=== PATIENT | male | born 1950 | race Caucasian/White ===

== ENCOUNTER → 2018-07-11 | Outpatient (CLI) | payer MEDICARE ==
[~2018-07-11] MED LIST: CEPH500C PO; ONDA8TAB13 PO; TRAM50TA2 PO
--- NOTE | 2018-07-11 11:00 | Diagnostic Imaging Report ---
PROCEDURE: CT right lower extremity without contrast. TECHNIQUE: Axially acquired CT was obtained through the right lower extremity without intravenous contrast. Coronal and sagittal reformations were also performed. INDICATION: Right knee pain. COMPARISON: None available. FINDINGS: Severe tricompartmental knee osteoarthritis is present. This is predominantly characterized by nonuniform joint space narrowing and large subcortical cyst formation. Marginal osteophytes are present as well. Small knee joint effusion is seen. Chondrocalcinosis of the menisci is likely degenerative in nature as well. Severe degenerative changes are also present at the proximal tibiofibular joint. No fracture is seen. No large mineralized intra-articular bodies are appreciated. IMPRESSION: 1. Severe tricompartmental knee osteoarthritis. 2. Advanced degenerative changes of the proximal tibiofibular joint. Dictated by: Dictated on workstation # [id number]
== END ==
LOC: RAD 09:05
PROVIDERS: ATTEND Orthopaedic Surgery
DX: Z01.818 Encounter for other preprocedural examination (principal); M17.11 Unilateral primary osteoarthritis, right knee
CPT/HCPCS: 73700

== ENCOUNTER → 2018-07-17 | Outpatient (CLI) | payer MEDICARE ==
--- NOTE | 2018-07-17 15:50 | Diagnostic Imaging Report ---
PROCEDURE: CT right lower extremity without contrast. TECHNIQUE: Helical acquired CT was obtained through the right lower extremity without intravenous contrast. INDICATION: Right knee pain. Operative planning CT. FINDINGS: Multiple noncontiguous axial oriented CT images of the right lower extremity were obtained for planning purposes. This demonstrate severe tricompartmental degenerative changes in the knee. No concerning osseous or soft tissue abnormality within the other visualized structures. IMPRESSION: Severe tricompartmental knee osteoarthritis. Dictated by: Dictated on workstation # [id number]
== END ==
LOC: RAD 15:08
PROVIDERS: ATTEND Orthopaedic Surgery
DX: Z01.818 Encounter for other preprocedural examination (principal); M17.11 Unilateral primary osteoarthritis, right knee
CPT/HCPCS: 73700

== ENCOUNTER 2018-07-23 12:00 | Outpatient (CLI) | payer MEDICARE ==
[~2018-07-23] VITALS: Ht 170.2 cm; Wt 98.1 kg
[2018-07-23] MEDS ORDERED: LISI10TA2 PO (12:14)
[2018-07-23 12:19] VITALS: BP 131/76
[2018-07-23 12:45] LABS: BASOPHILS % (AUTO) 1 % (0-10); EOSINOPHILS # (AUTO) 0.2 10^3/uL (0.0-0.3); EOSINOPHILS % (AUTO) 3 % (0-10); HEMATOCRIT 46 % (40-54); HEMOGLOBIN 15.4 G/DL (13.3-17.7); LYMPHOCYTES # (AUTO) 1.6 X 10^3 (1.0-4.0); LYMPHOCYTES % (AUTO) 24 % (12-44); MEAN CORPUSCULAR HEMOGLOBIN 31 PG (25-34); MEAN CORPUSCULAR HGB CONC 34 G/DL (32-36); MEAN CORPUSCULAR VOLUME 91 FL (80-99); MEAN PLATELET VOLUME 9.8 FL (7.4-10.4); MONOCYTES # (AUTO) 0.6 X 10^3 (0.0-1.0); MONOCYTES % (AUTO) 9 % (0-12); NEUTROPHILS # (AUTO) 4.2 X 10^3 (1.8-7.8); NEUTROPHILS % (AUTO) 65 % (42-75); PLATELET COUNT 242 10^3/uL (130-400); RED CELL DISTRIBUTION WIDTH 13.6 % (10.0-14.5); WHITE BLOOD COUNT 6.5 10^3/uL (4.3-11.0)
[2018-07-23 12:45] LABS: BILIRUBIN,URINE NEGATIVE (NEGATIVE); CLARITY,URINE CLEAR; COLOR,URINE YELLOW; GLUCOSE, URINE (UA) NEGATIVE (NEGATIVE); KETONES,URINE NEGATIVE (NEGATIVE); LEUKOCYTE ESTERASE ,URINE NEGATIVE (NEGATIVE); NITRITE,URINE NEGATIVE (NEGATIVE); PH,URINE 5 (5-9); PROTEIN,URINE NEGATIVE (NEGATIVE); UROBILINOGEN,URINE NORMAL (NORMAL)
[2018-07-23 12:55] LABS: INR 0.9 (0.8-1.4); PROTHROMBIN TIME PATIENT 12.6 SEC (12.2-14.7)
[2018-07-23 13:06] LABS: BILIRUBIN,TOTAL 0.4 MG/DL (0.1-1.0); CREATININE SERUM 1.36 MG/DL (0.60-1.30); POTASSIUM 4.2 MMOL/L (3.6-5.0); TOTAL PROTEIN 6.8 GM/DL (6.4-8.2)
--- NOTE | 2018-07-23 13:06 | Diagnostic Imaging Report ---
Indication: Preop knee arthroplasty PA and lateral chest Heart size and pulmonary vascular normal. Lungs are clear. There are no effusions or pneumothoraces. Impression: Negative chest Dictated by: Dictated on workstation # [id number]
[2018-07-23 13:09] LABS: BACTERIA,URINE NEGATIVE /HPF; RBC,URINE 25-50 /HPF
[2018-07-23] MEDS ORDERED: DOXY25TA56 PO (13:27)
== END 2018-07-23 15:41 | disposition home or self-care (01) ==
LOC: PREOP 12:00
PROVIDERS: ATTEND Orthopaedic Surgery
DX: Z01.810 Encounter for preprocedural cardiovascular examination (principal); Z01.811 Encounter for preprocedural respiratory examination; Z01.812 Encounter for preprocedural laboratory examination; Z11.2 Encounter for screening for other bacterial diseases; M17.11 Unilateral primary osteoarthritis, right knee; R53.83 Other fatigue
CPT/HCPCS: 36415; 71046; 80053; 81000; 85025; 85610; 86850; 86900; 86901; 87081; 93005

== ENCOUNTER 2018-07-30 07:36 | Inpatient (IN) | payer MEDICARE ==
--- NOTE | 2018-07-21 11:42 | HISTORY AND PHYSICAL ---
DATE OF SERVICE: 07/30/2018 DATE OF ADMISSION: 07/30/2018. This will be for inpatient admission service for right total knee arthroplasty. The patient will require regular inpatient admission due to comorbidities, pain management, physical therapy and gait abnormalities. HISTORY OF PRESENT ILLNESS: The patient is a 68-year-old gentleman with progressively worsening right knee pain. He reports that he has not responded with any prolonged relief from conservative measures including the anti-inflammatories, injections and activity modifications. He reports activity limitations because of the knee. Due to functional impairment and failure to improve with conservative measures, the patient elected to proceed with surgical intervention. Radiographs revealed severe medial and patellofemoral arthrosis with complete loss of medial joint space. REVIEW OF SYSTEMS: No chest pain, no shortness of breath. No dysuria. PAST MEDICAL HISTORY: Hypertension, urinary calculi. PAST SURGICAL HISTORY: Left ACL reconstruction, renal stone extraction, uvula extraction. FAMILY HISTORY: Significant for Parkinson's, diabetes. PRIMARY CARE PROVIDER: Dr. Mason. MEDICATIONS: Lisinopril and Naprosyn. ALLERGIES: CODEINE. SOCIAL HISTORY: The patient is a former smoker, drinks alcohol socially. PHYSICAL EXAMINATION: GENERAL: The patient is well developed, well-nourished, in no acute distress. HEENT: Normocephalic, atraumatic. Pupils are equal, round, reactive to light. Oropharynx is clear. NECK: Supple, no lymphadenopathy. LUNGS: Clear to auscultation bilaterally. HEART: Regular rate and rhythm. ABDOMEN: Soft, nontender, nondistended. EXTREMITIES: The right knee demonstrates varus alignment. Range of motion 0/3/100. He has negative anterior and posterior drawer. He has osteophyte formation noted medially to palpation with patellofemoral crepitus. Slight effusion noted. IMPRESSION: Severe right knee osteoarthritis. PLAN: Right total knee arthroplasty. The risks, benefits, options, ramifications and recovery were discussed at length with the patient. He understands and wishes to proceed. Job ID: [id number] DocumentID: [id number] Dictated Date: 07/21/2018 11:17:33 Dining Room Tables Set Up Attendant Date: 07/21/2018 11:42:12 Dictated By: TIMUR ANTHONY MD
--- NOTE | 2018-07-24 13:30 | NUR ---
MEDICATIONS WERE ENTERED BY PREOP NURSE. I CALLED [facility] AND VERIFIED THEY FILLED LISINOPRIL 10MG DAILY #90 07-17-18.
[~2018-07-30] VITALS: Ht 170.2 cm; Wt 98.1 kg
[~2018-07-30 07:36] MED LIST changes: +DOXY25TA56 PO; +LISI10TA2 PO
[2018-07-30 07:38] VITALS: BP 133/72
[2018-07-30] MEDS ORDERED: morphine PCA 100 MG/100 ML BAG IV PRN (07:45)
[2018-07-30] MEDS ORDERED: oxyCODONE/APAP 5/325MG (PERCOCET 5) TABLET PO PRN (07:45)
[2018-07-30] MEDS ORDERED: diphenhydrAMINE 50 MG/ML INJ (BENADRYL) IVP PRN (07:45)
[2018-07-30] MEDS ORDERED: ACETAMINOPHEN 325 MG TABLET PO PRN (07:45)
[2018-07-30] MEDS: LACTATED RINGERS 1,000 ML IV PRN ×2 (07:50→10:55)
[2018-07-30] MEDS ORDERED: CEFUROXIME INJECTION 1,500 MG in WATER (STERILE) FOR INJECTION 15 ML IV ONE (08:00)
[2018-07-30] MEDS ORDERED: INTRA-ARTICULAR IU ONE ×4 (08:00)
[2018-07-30] MEDS ORDERED: SEVOFLURANE (ULTANE) 15 ML INHAL SOLN ONE ×7 (08:24→10:55)
[2018-07-30] MEDS ORDERED: LIDOCAINE PF 2% 5 ML (XYLOCAINE) VIAL ONE (08:24)
[2018-07-30] MEDS ORDERED: proPOfol 200 MG/20 ML (DIPRIVAN) VIAL IV ONE (08:24)
[2018-07-30] MEDS ORDERED: fentaNYL INJECTION 100 MCG/2 ML AMP ONE ×2 (08:26→11:03)
[2018-07-30] MEDS ORDERED: MIDAZOLAM 2 MG/2 ML (VERSED) VIAL ONE (08:26)
[2018-07-30] MEDS ORDERED: NAPR-1033 PO (08:45)
[2018-07-30] MEDS ORDERED: RANI75TA21 PO (08:45)
[2018-07-30] MEDS ORDERED: BUPIVACAINE 0.25% 30 ML (SENSORCAINE) VIAL ONE (08:50)
[2018-07-30] MEDS ORDERED: ROCURONIUM 10 MG/ML 5 ML SYRINGE IV ONE (09:29)
[2018-07-30] MEDS ORDERED: DEXAMETHASONE 10 MG/ML (DECADRON) 1 ML VIAL ONE (09:29)
[2018-07-30] MEDS ORDERED: ONDANSETRON 4 MG/2 ML (SDV) Z0FRAN ONE (09:29)
--- NOTE | 2018-07-30 09:30 | Progress Note-Pre Operative ---
Pre-Operative Progress Note H&P Reviewed The H&P was reviewed, patient examined and no changes noted. Date Seen by Provider: Jul 30, 2018 Time Seen by Provider: :29 Date H&P Reviewed: Jul 30, 2018 Time H&P Reviewed: 09:29 Pre-Operative Diagnosis: right knee primary osteoarthritis TIMUR ANTHONY MD Jul 30, 2018 09:30
--- NOTE | 2018-07-30 09:31 | Progress Note-Post Operative ---
Post-Operative Progess Note Surgeon (s)/Gag Writer (s) Surgeon TIMUR ANTHONY MD Gag Writer: Jayson Alvarenga Pre-Operative Diagnosis right knee primary osteoarthritis Post-Operative Diagnosis right knee primary osteoarthrits Procedure & Operative Findings Date of Procedure 07/30/18 Procedure Performed/Findings right total knee arthroplasty Anesthesia Type GETA Estimated Blood Loss Estimated blood loss (mL): minimal Specimens/Packing Specimens Removed none Packing: none TIMUR ANTHONY MD Jul 30, 2018 09:31
[2018-07-30] MEDS ORDERED: OXYC1TAB87 PO (09:33)
--- NOTE | 2018-07-30 09:36 | D/C HH Face to Face Order ---
D/C Face to Face Orders Instructions for Patient [facility], Patient Instructions/FollowUp: three weeks Physician to follow Patient: three weeks Discharge Diet for Home: Regular Diet Patient Data-Allergies,Ht & Wt Patient Allergies: Coded Allergies: acetaminophen (Verified Allergy, Mild, ITCHING, 07/23/18) codeine (Verified Allergy, Mild, HIVES, 07/23/18) Height (Feet): 5 Height (Inches): 7.00 Weight (Pounds): 216 Weight (Ounces): 5.0 Home Health Need/Face to Face Date of Face to Face: Jul 30, 2018 Clinical Findings: Instability, Muscle weakness, Pain with ambulation, Unsteady gait I have seen Pt [id number]: Yes Discharged To: Home Diagnosis/Conditions: right total knee arthroplasty Patient is Homebound due to: Wai fall risk due to instabilty, Pain w/ ambulation Homebound Status Due to the above stated illness, injury or surgical procedure (medical condition or diagnosis) and associated clinical findings, the patient is homebound because of his/her inability to leave home except with aid of a supportive device and/or person AND leaving the home requires a considerable and taxing effort or is medically contraindicated. Pt req the following assistanc: [facility] Nursing Orders Home Health Services Order: Physical Therapy-Evaluate & Treat DC right knee huyen and apply steri strips 08/13/18 Home Health Infusion Therapy Line Start Date: Jul 30, 2018 Line Start Time: 0750 Line Type: Peripheral IV Site Location: Hand Therapy Orders Therapy Orders: Physical Therapy, PT to assess for OT Therapy Specific Orders: Eval assistive deivces, Gait training, Increase strength/endurance, Provider maintenance therapy, Restore ROM Certify Stmt I certify that this patient is under my care and that I, a nurse practitioner or a physician; a portfolio assistant working with me, had a face to face encounter that - meets the physician face to face encounter requirements with this patient as dated. TIMUR ANTHONY MD Jul 30, 2018 09:36
[2018-07-30] MEDS ORDERED: TRANEXAMIC ACID 100 MG/ML 10 ML INJECTION IV ONE (09:57)
[2018-07-30] MEDS ORDERED: NEOSTIGMINE 1 MG/ML 5 ML SYRINGE ONE (10:11)
[2018-07-30] MEDS ORDERED: GLYCOPYRROLATE 0.2 MG/ML (ROBINUL) 2 ML VIAL ONE (10:11)
[2018-07-30] MEDS ORDERED: ONDANSETRON 4 MG/2 ML (SDV) Z0FRAN IVP PRN (11:30)
[2018-07-30] MEDS ORDERED: MEPERIDINE (DEMEROL) INJ 50 MG/ML IVP ONE (11:30)
[2018-07-30] MEDS ORDERED: HYDROmorphone 2 MG/ML VIAL (DILAUDID) IV ONE (11:30)
[2018-07-30] MEDS ORDERED: PROMETHAZINE INJ 25 MG/ML (PHENERGAN) AMP IVP ONE (11:30)
[2018-07-30] MEDS ORDERED: morphine INJ 10 MG/ML 1ML (SYR OR VIAL) IVP ONE (11:30)
[2018-07-30] MEDS ORDERED: morphine INJ 10 MG/ML 1ML (SYR OR VIAL) ONE (11:39)
[2018-07-30 12:00] VITALS: BP 142/81
--- NOTE | 2018-07-30 12:10 | NUR ---
ANCELMO PIA admitted to room 418-1, with an admitting diagnosis of RIGHT TOTAL KNEE REPLACEMENT , on 07/30/18 from [facility] via [facility], accompanied by STAFF.ANCELMO PALACIO introduced to surroundings, call light, bed controls, phone, TV, temperature control, lights, meal times, smoking policy, visitor policy, side rail policy, bathrooms and showers. Patient Rights given to patient in the handbook.ANCELMO PALACIO verbalizes understanding that [facility] is not responsible for the loss or damage to any personal effects or valuables that are kept in the patients posession during their hospitalization. The following Patient Care Plans were discussed with the PT: Discharge Planning, PAIN CONTROL,IV THERAPY, and TESTYS AND PROCEDURES AND PROTOCALS. ANCELMO PALACIO verbalizes understanding of Interdisciplinary Patient Education. Patient and/or family were informed about the Rapid Response Team and its purpose.
[2018-07-30] MEDS ORDERED: morphine INJ 10 MG/ML 1ML (SYR OR VIAL) IVP STA (12:22)
[2018-07-30] MEDS ORDERED: morphine INJ 4 MG/ML 1 ML (VIAL/SYRINGE) ONE (12:28)
--- NOTE | 2018-07-30 13:07 | Progress Note-Standard ---
Standard Progress Note Progress Notes/Assess & Plan Date Seen by a Provider: Jul 30, 2018 Time Seen by a Provider: 13:05 Progress/Assessment & Plan post op check somnolent, but no complaints denies paresthesias radiographs--HW well positioned without fx RLE--2 plus DP pulse with brisk cap refill. Intact PF of toes and ankle, but weak with DF. Sensation intact to light touch throughout s/p RTKA . weakness likely secondary to periarticular block mobilize as able TIMUR ANTHONY MD Jul 30, 2018 13:07
[2018-07-30] MEDS: SENNA W/DOCUSATE (SENOKOT S) TABLET PO SCH ×2 (14:28→21:37)
[2018-07-30] MEDS: NS IV 1000 ML 1,000 ML IV SCH ×2 (14:28→17:17)
[2018-07-30] MEDS: ONDANSETRON 4 MG/2 ML (SDV) Z0FRAN IVP PRN ×2 (14:39→21:46)
--- NOTE | 2018-07-30 14:47 | Physical Therapy Evaluation ---
PT Evaluation-General Medical Diagnosis Admission Date Jul 30, 2018 at 07:36 Medical Diagnosis: right TKA Onset Date: Jul 30, 2018 Therapy Diagnosis Therapy Diagnosis: impaired mobility, strength, endurance, ROM Height/Weight Height (Feet): 5 Height (Inches): 7.00 Weight (Pounds): 216 Weight (Ounces): 5.0 Precautions Precautions/Isolations: Standard Precautions Weight Bear Status Right Lower Extremity: Right Weight Bearing/Tolerated Referral Physician: Jayson Alvarenga Reason for Referral: Evaluation/Treatment Medical History Additional Medical History PAST MEDICAL HISTORY: Hypertension, urinary calculi. PAST SURGICAL HISTORY: Left ACL reconstruction, renal stone extraction, uvula extraction Reviewed History: Yes Social History Home: Single Level Current Living Status: Spouse Entry Into Home: Stairs Without Railing PT Steps Into Home: 4 Prior/Core FIM Prior Level of Function Therapy Code Descriptions/Definitions Functional [place] Measure: 0=Not Assessed/NA 4=Minimal Assistance 1=Total Assistance 5=Supervision or Setup 2=Maximal Assistance 6=Modified [place] 3=Moderate Assistance 7=Complete [place] Therapy Quality Codes: 6 Independent with activity with or without an assistive device 5 Patient requires set up or clean up by helper. Patient completes activity by themselves 4 Supervision or touching assist (CGA). [place] provide cues , steadying assist 3 The helper provides less than half the effort to complete the activity 2 The helper provides more than half the effort to complete the activity 1 Dependent. The helper does all the effort to complete an activity 7 Patient refused to complete or attempt activity 9 The patient did not perform the activity before the current illness or injury 88 Not attempted due to Medical conditions or safety concerns Functional Abilities and Goals: Independent: Patient completed the activities by him/herself, with or without an assistive device, with no assistance from a helper. Needed Some Help: Patient needed partial assistance from another person to complete activities. Dependent: A helper completed the activities for the patient. Unknown: Not Applicable: Bed Mobility: 7 Transfers (B,C,W/C) (FIM): 7 Gait: 7 Stairs: 7 Indoor Mobility (Ambulation): Independent Stairs: Independent PT Evaluation-Current Subjective Patient in bed pre tx, agrees to PT, has no pain in right knee at rest. Patient is very drowsy, nauseated and does not have any active movement in right ankle yet. Pt/Family Goals to be independent at home Objective Patient Orientation: Person, Place, Situation Attachments: SCD's, Oxygen, Polar Pack, IV ROM/Strength ROM Lower Extremities right knee extension +5 degrees, flexion 60 degrees Strength Lower Extremities NT Neuromuscular (Tone, Coordination, Reflexes) NT Sensory Vision: Wears Glasses Hearing: Functional Sensation Right Lower Extremit: Intact Sensation Left Lower Extremity: Intact Transfers Therapy Code Descriptions/Definitions Functional [place] Measure: 0=Not Assessed/NA 4=Minimal Assistance 1=Total Assistance 5=Supervision or Setup 2=Maximal Assistance 6=Modified [place] 3=Moderate Assistance 7=Complete [place] Treatment Supine total knee protocol x10 (AP, QS, HS, SAQ, SLR). At the end of exercises patient became even more nauseated and started dry heaving into his basin. That , combined with his block still being pretty active it was decided that he will not ambulate at this time. CPM donned and adjusted to his leg and set to -2/ 50. Patient in bed post tx with nurse call, phone, tray, family in the room. Polar care and SCD's on. Assessment/Needs Patient has impaired mobility, strength, endurance, ROM post right TKA. Patient very nauseated, nurse notified. Rehab Potential: Fair PT Short Term Goals Short Term Goals Time Frame: Aug 06, 2018 Transfers (B,C,W/C) (FIM): 5 Gait (FIM): 2 Gait Distance Comment: 50' Gait Level of Assist: 5 Gait Assistive Device: FWW PT Plan Problem List Problem List: Activity Tolerance, Functional Strength, Safety, Balance, Gait, Transfer, Bed Mobility, ROM Treatment/Plan Treatment Plan: Continue Plan of Care Treatment Plan: Bed Mobility, Education, Functional Activity Nilsa, Functional Strength, Gait, Safety, Therapeutic Exercise, Transfers Treatment Duration: Aug 06, 2018 Frequency: 11 times per week Estimated Hrs Per Day: .25 hour per day (15-30') Patient and/or Family Agrees t: Yes Safety Risks/Education Patient Education: Reviewed Use of Ice, Correct Positioning, Disease Process, Safety Issues Teaching Recipient: Patient Teaching Methods: Demonstration, Discussion Response to Teaching: Reinforcement Needed Discharge Recommendations Plan Patient will perform bed mobility and transfer training, balance and endurance training, functional strengthening, stair training, gait training, and education , to improve functional mobility and independence at home. Therapy D/C Recommendations: Home w/ Family Support Time/GCodes Time In: 1425 Time Out: 1440 Total Billed Treatment Time: 15 Total Billed Treatment 1 visit EVL 15' RUDI KO PT Jul 30, 2018 14:47
--- NOTE | 2018-07-30 15:11 | Diagnostic Imaging Report ---
INDICATION: Right knee replacement. Time of exam 11:49 a.m. FINDINGS: Two views of the right knee demonstrate postoperative changes of total knee arthroplasty. Prosthetic elements are in good position. No fracture or loosening is seen. Overlying skin huyen are noted. IMPRESSION: Satisfactory postop right knee. Dictated by: Dictated on workstation # [id number]
--- NOTE | 2018-07-30 15:24 | OPERATIVE REPORT ---
DATE OF SERVICE: 07/30/2018 PREOPERATIVE DIAGNOSIS: Right knee primary osteoarthritis. POSTOPERATIVE DIAGNOSIS: Right knee primary osteoarthritis. PROCEDURE: Right total knee arthroplasty. SURGEON: Mc Byrd MD. MACHINE LACER: Jayson Alvarenga, who assisted throughout the procedure and closed the incision. He also aided with retraction and patient positioning. ANESTHESIA: General endotracheal by Jim Urias CRNA. TOURNIQUET TIME: Approximately 70 minutes at 300 mmHg. ESTIMATED BLOOD LOSS: Minimal. DRAINS: None. COMPLICATIONS: None. POSTOPERATIVE PLAN: Routine protocol, the patient was transferred to the recovery room awake and in stable condition. MATERIALS: MicroPort cemented size 6 femur, cemented size 6+ tibia with a 10 mm insert and cemented size 35 patellar button. STATEMENT OF MEDICAL NECESSITY: The patient is a 68-year-old gentleman with a longstanding progressive right knee pain. Radiographs revealed severe tricompartmental osteoarthritis. He has undergone treatment with injections, anti-inflammatories and rest without relief. Due to functional impairment and failure to improve with conservative measures, the patient elected to proceed with surgical intervention. DESCRIPTION OF PROCEDURE: After risks and benefits of the procedure were discussed and questions were answered and informed consent signed and placed on chart, the operative site was confirmed in the preoperative holding area initialed by the surgeon, the patient was then transferred to the operating room. After adequate levels of general endotracheal anesthetic were obtained, a timeout was called confirming the operative site. The right lower extremity was prepped and draped in the usual sterile fashion with the leg elevated and the knee flexed, tourniquet was insufflated to 300 mmHg. A standard anterior approach was utilized. Hemostasis was obtained with cautery. Medial parapatellar arthrotomy was performed leaving a 1 cm cuff on the patella for later reattachment. A portion of the fat pad was resected. The ACL was resected. The custom block was placed on the distal femur and felt to be in excellent position. This was pinned into position and the distal cutting block was placed. A distal cut was made and the 6 cutting block was placed parallel to the epicondylar axis and the previously placed drill holes. The cuts were then made from posterior to anterior. A subperiosteal release was then carefully performed over the posterior distal femur, being careful to stay on the bony surface. The custom block was placed on the tibia, but was felt to be malaligned. Therefore, a standard technique was utilized in which the intramedullary guide was passed into the canal. The cutting block was placed. The drop mar transected the intermalleolar axis. The cut was made. A 6+ baseplate was placed and found to be in excellent position. This was prepared with a drill and keel punch. The trochlear cut was made. The patella was prepared by using the freehand technique and resecting 10 mm off the undersurface. The peg guide was placed and the peg holes were drilled. The trials were inserted with a 10 mm insert. Full extension was easily obtained greater than 120 degrees of flexion with gravity was easily obtained. There was no anterior/posterior or medial/lateral laxity in flexion or extension . The patella tracked very well. The trials were removed. The joint was irrigated with pulse lavage. The bone ends were irrigated and dried. The periarticular block was placed in the posterior capsule, medial and lateral retinaculum extensor mechanism subcutaneous tissues. The bone ends were further irrigated and dried. The tibial prosthesis was cemented in position. Excess cement was removed. The superior surface was irrigated and dried and the polyethylene insert was placed. The distal femur was irrigated and dried and the femoral prosthesis was cemented into position. Excessive cement was removed. The knee was brought down into full extension until the cement had cured. The undersurface of the patella was irrigated and dried and the patellar button was cemented into position. Excessive cement was removed. Once the cement had cured, the knee was taken through a range of motion. Full extension was easily obtained, 120 degrees of flexion with gravity was easily obtained. There was no anterior/posterior or medial/lateral laxity in flexion or extension. The joint was further irrigated with a pulse lavage. The arthrotomy was closed with #2 [place] in a jaefgf-mo-lpnzd interrupted fashion. The knee was flexed. The patella tracked well. There was no undue tension noted at the repair site. Subcutaneous tissues were irrigated using a total of 6 liters throughout the procedure. A 0 Vicryl was used for the deep subcutaneous tissue, 2-0 Vicryl for the superficial subcutaneous tissue and staple was used on the skin. A soft dressing was applied. The tourniquet was deflated and the patient was transferred to the recovery room, awake and in stable condition. Job ID: [id number] DocumentID: [id number] Dictated Date: 07/30/2018 11:17:41 Area Sales Manager Date: 07/30/2018 15:24:12 Dictated By: MC BYRD MD
[2018-07-30] MEDS ORDERED: FLU QUADRIvalent (5+ YOA) 2018-2019 (AFLURIA) 0.5 ML IM ONE (16:00)
[2018-07-30 16:44] VITALS: BP 149/78
[2018-07-30] MEDS ORDERED: PROMETHAZINE INJ 25 MG/ML (PHENERGAN) AMP IVP PRN (16:45)
[2018-07-30] MEDS: CEFUROXIME INJECTION 750 MG in WATER (STERILE) FOR INJECTION 10 ML IV SCH (17:17)
[2018-07-30 19:25] VITALS: BP 140/70
[2018-07-31] VITALS: BP 147/83
[2018-07-31] MEDS: CEFUROXIME INJECTION 750 MG in WATER (STERILE) FOR INJECTION 10 ML IV SCH (01:45)
[2018-07-31] MEDS: NS IV 1000 ML 1,000 ML IV SCH ×2 (02:44→15:15)
[2018-07-31 04:00] VITALS: BP 146/74
[2018-07-31 06:18] LABS: HEMOGLOBIN 14.3 G/DL (13.3-17.7)
[2018-07-31] MEDS: MULTIVIT W/MINERALS TAB (THERAGRAN M) PO SCH (07:24)
[2018-07-31 08:00] VITALS: BP 174/80
--- NOTE | 2018-07-31 08:00 | Progress Note-Standard ---
Standard Progress Note Progress Notes/Assess & Plan Date Seen by a Provider: Jul 31, 2018 Time Seen by a Provider: 07:59 Progress/Assessment & Plan post op check somnolent, but no complaints denies paresthesias radiographs--HW well positioned without fx RLE--2 plus DP pulse with brisk cap refill. Intact PF of toes and ankle, but weak with DF. Sensation intact to light touch throughout s/p RTKA . weakness likely secondary to periarticular block mobilize as able Final Diagnosis no complaints Nausea improved Vital Signs Date Time Temp Pulse Resp B/P (MAP) Pulse Ox O2 Delivery O2 Flow Rate FiO2 07/31/18 04:00 99.4 96 16 146/74 (98) 95 Room Air 07/31/18 02:24 91 Room Air 07/31/18 00:00 97.6 90 18 147/83 (104) 95 Room Air 07/30/18 22:31 91 Room Air 07/30/18 21:00 93 Nasal Cannula 3.00 07/30/18 19:25 98.0 92 20 140/70 (93) 93 Room Air 07/30/18 18:50 98 Room Air 07/30/18 16:44 97.6 77 20 149/78 (101) 97 Nasal Cannula 3.00 07/30/18 16:37 Room Air 07/30/18 12:15 12 93 Nasal Cannula 3 07/30/18 12:10 14 96 Nasal Cannula 3 07/30/18 12:00 14 96 Nasal Cannula 3 07/30/18 12:00 97.8 89 20 142/81 (101) 96 Nasal Cannula 3.00 07/30/18 11:50 15 95 OxyMask 3 07/30/18 11:40 15 99 OxyMask 6 07/30/18 11:30 15 98 OxyMask 10 07/30/18 11:20 15 98 OxyMask 10 07/30/18 11:18 17 94 OxyMask 10 I & O 07/31/18 07:00 Intake Total 4535 ml Output Total 1700 ml Balance 2835 ml Laboratory Tests Test 07/31/18 06:00 Range/Units Hemoglobin 14.3 13.3-17.7 G/DL Hematocrit 43 40-54 % RLE--dressing intact. Intact DF and PF of toes and ankle with intact sensation throughout s/p RTKA PT/OT TIMUR ANTHONY MD Jul 31, 2018 08:00
[2018-07-31] MEDS ORDERED: PATIENT MAY USE OWN MED,SINGLE MED PO SCH (09:00)
[2018-07-31] MEDS: SENNA W/DOCUSATE (SENOKOT S) TABLET PO SCH ×2 (09:50→20:08)
[2018-07-31] MEDS: ONDANSETRON 4 MG/2 ML (SDV) Z0FRAN IVP PRN ×2 (09:50→14:55)
[2018-07-31] MEDS: ASPIRIN E.C. 81 MG (ECOTRIN) TAB PO SCH (09:50)
[2018-07-31] MEDS: ENOXAPARIN 30 MG/0.3 ML (LOVENOX) SYR SC SCH ×2 (09:52→20:08)
[2018-07-31] MEDS: lisINopril 10 MG (PRINIVIL) TABLET PO SCH (09:53)
--- NOTE | 2018-07-31 10:12 | Physical Therapy Daily Note ---
PT Daily Note-Current Subjective Patient is in bed and agrees to PT. Education with patient and spouse on pain management importance. Pain Numeric Pain Scale: 10-Worst Possible Pain Location: Right Location Body Site: Knee Pain Description: Acute Mental Status Patient Orientation: Normal For Age Attachments: IV Transfers Therapy Code Descriptions/Definitions Functional [place] Measure: 0=Not Assessed/NA 4=Minimal Assistance 1=Total Assistance 5=Supervision or Setup 2=Maximal Assistance 6=Modified [place] 3=Moderate Assistance 7=Complete [place] Therapy Quality Codes: 6 Independent with activity with or without an assistive device 5 Patient requires set up or clean up by helper. Patient completes activity by themselves 4 Supervision or touching assist (CGA). [place] provide cues , steadying assist 3 The helper provides less than half the effort to complete the activity 2 The helper provides more than half the effort to complete the activity 1 Dependent. The helper does all the effort to complete an activity 7 Patient refused to complete or attempt activity 9 The patient did not perform the activity before the current illness or injury 88 Not attempted due to Medical conditions or safety concerns Transfers (B, C, W/C) (FIM): 5 Scootin Supine to/from Sit: 5 Sit to/from Stand: 5 Bed to/from Chair: 5 Weight Bearing Right Lower Extremity: Right Weight Bearing/Tolerated Gait Training Gait (FIM): 5 Distance (FIM): 3=150 ft Distance: 225' Gait Level of Assist: 5 Gait Assistive Device: FWW very slow, antalgic gait sequence with ~50% weight bearing due to pain per his report Exercises Supine Ex: Ankle pumps, Quad Set, Heel Slides, Straight leg raise Supine Reps: 15 Seated Therapy Exercises: Long arc quads Seated Reps: 15 Assessment Patient tolerated treatment well and is up in recliner with needs met. PT to increase activity as tolerated by patient. PT Short Term Goals Short Term Goals Time Frame: Aug 06, 2018 Transfers (B,C,W/C) (FIM): 5 Gait (FIM): 2 Gait Distance Comment: 50' Gait Level of Assist: 5 Gait Assistive Device: FWW PT Plan Treatment/Plan Treatment Plan: Continue Plan of Care Treatment Plan: Bed Mobility, Education, Functional Activity Nilsa, Functional Strength, Gait, Safety, Therapeutic Exercise, Transfers Treatment Duration: Aug 06, 2018 Frequency: 11 times per week Estimated Hrs Per Day: .25 hour per day (15-30') Patient and/or Family Agrees t: Yes Time/GCodes Time In: 845 Time Out: 911 Total Billed Treatment Time: 26 Total Billed Treatment 1 visit GT 15 min EX 11 min HARPREET BOYD PT Jul 31, 2018 10:12
[2018-07-31 12:00] VITALS: BP 183/92
--- NOTE | 2018-07-31 14:18 | Anesthesia-General Post-Op ---
General Patient Condition Mental Status/LOC: Same as Preop Cardiovascular: Satisfactory Nausea/Vomiting: Absent Respiratory: Satisfactory Pain: Controlled Complications: Absent Post Op Complications Complications None Follow Up Care/Instructions Patient Instructions None needed. Anesthesia/Patient Condition Patient Condition Patient is doing well, no complaints, stable vital signs, no apparent adverse anesthesia problems. No complications reported per nursing. MAYA OJEDA CRNA Jul 31, 2018 14:18
--- NOTE | 2018-07-31 14:33 | Occupational Therapy Eval ---
OT Evaluation-General/PLF Medical Diagnosis Admission Date Jul 30, 2018 at 07:36 Medical Diagnosis: right TKA Onset Date: Jul 30, 2018 Therapy Diagnosis Therapy Diagnosis: Weakness Height/Weight Height (Feet): 5 Height (Inches): 7.00 Weight (Pounds): 216 Weight (Ounces): 5.0 Precautions Precautions/Isolations: Standard Precautions Safety Interventions: None Weight Bear Status Weight Bearing Restriction: Weight Bearing/Tolerated Referral Physician: Jayson Alvarenga Referral Reason: Activity Tolerance, Self Care, Evaluation/Treatment, Strengthening/ROM Medical History Pertinent Medical History: HTN Additional Medical History Urinary calculi, Left ACL reconstruction, renal stone extraction Current History Pt. had elective knee replacement. Reviewed History: Yes Social History Home: Single Level Current Living Status: Spouse Entry Into Home: Stairs Without Railing Steps Into Home: 4 ADL-Prior Level of Function Therapy Code Descriptions/Definitions Functional [place] Measure: 0=Not Assessed/NA 4=Minimal Assistance 1=Total Assistance 5=Supervision or Setup 2=Maximal Assistance 6=Modified [place] 3=Moderate Assistance 7=Complete [place] Therapy Quality Codes: 6 Independent with activity with or without an assistive device 5 Patient requires set up or clean up by helper. Patient completes activity by themselves 4 Supervision or touching assist (CGA). [place] provide cues , steadying assist 3 The helper provides less than half the effort to complete the activity 2 The helper provides more than half the effort to complete the activity 1 Dependent. The helper does all the effort to complete an activity 7 Patient refused to complete or attempt activity 9 The patient did not perform the activity before the current illness or injury 88 Not attempted due to Medical conditions or safety concerns Functional Abilities and Goals: Independent: Patient completed the activities by him/herself, with or without an assistive device, with no assistance from a helper. Needed Some Help: Patient needed partial assistance from another person to complete activities. Dependent: A helper completed the activities for the patient. Unknown: Not Applicable: ADL PLOF Comments Pt. states that he was independent prior to this hospitalization. Self Care: Independent Functional Cognition: Independent DME/Equipment: Tub/Shower Drive Self: Yes OT Current Status Subjective Pt. reports 8/10 pain. Pt. has SUPERVISOR ASSEMBLY DEPARTMENT pump. Pt. also has several boughts of nausea while OT in room. Nurse aide will ask nurse for anti nausea meds. Appearance Pt. up in chair. Agrees to work with OT. Mental Status/Objective Patient Orientation: Person, Place, Time, Situation Current Upper Extremity ROM WFL Upper Extremity Strength WFL ADL-Treatment Therapy Code Descriptions/Definitions Functional [place] Measure: 0=Not Assessed/NA 4=Minimal Assistance 1=Total Assistance 5=Supervision or Setup 2=Maximal Assistance 6=Modified [place] 3=Moderate Assistance 7=Complete [place] Therapy Quality Codes: 6 Independent with activity with or without an assistive device 5 Patient requires set up or clean up by helper. Patient completes activity by themselves 4 Supervision or touching assist (CGA). [place] provide cues , steadying assist 3 The helper provides less than half the effort to complete the activity 2 The helper provides more than half the effort to complete the activity 1 Dependent. The helper does all the effort to complete an activity 7 Patient refused to complete or attempt activity 9 The patient did not perform the activity before the current illness or injury 88 Not attempted due to Medical conditions or safety concerns Lower Body Dressing (FIM): 1 Transfers (B, C, W/C) (FIM): 4 (Min assist to stand and transfer to bed. SBA to transfer sit-supine. SBA to adjust self in bed.) Other Treatments Pt. up in chair. States that he is nauseated. Has several dry heaves in bucket. Agrees to transfer back to bed. Stands with min assist but reports severe pain with movement. Transfers to bed. Ice applied to knee. Pt. declines SCDs. Begins to dry heave again. Nurse tech in room. All needs are met and will assist pt. at later time after nausea subsides. Education OT Patient Education: Correct positioning, Modified ADL techniques, Progress toward Goal/Update tx plan, Purpose of tx/functional activities, Reviewed precautions, Rehab process, Transfer techniques Teaching Recipient: Patient Teaching Methods: Demonstration, Discussion Response to Teaching: Verbalize Understanding, Return Demonstration OT Short Term Goals Short Term Goals Transfers (B,C,W/C) (FIM): 5 1=Demonstrate adherence to instructed precautions during ADL tasks. 2=Patient will verbalize/demonstrate understanding of assistive devices/ modifications for ADL. 3=Patient will improve strength/tolerance for activity to enable patient to perform ADL's. OT Long-Term Goals Long-Term Goals Time Frame: Aug 07, 2018 Eating (FIM): 7 Grooming(FIM): 6 Bathing(FIM): 5 Upper Body Dressing(FIM): 6 Lower Body Dressing(FIM): 6 Toileting(FIM): 6 Transfers (B,C,W/C) (FIM): 6 Toilet/Commode Transfer(FIM): 6 Shower Transfer(FIM): 5 Additional Goals: 1-Demonstrate ADL Tasks, 2-Verbalize Understanding, 3- ImproveStrength/Nilsa 1=Demonstrate adherence to instructed precautions during ADL tasks. 2=Patient will verbalize/demonstrate understanding of assistive devices/ modifications for ADL. 3=Patient will improve strength/tolerance for activity to enable patient to perform ADL's. OT Education/Plan Problem List/Assessment Assessment: Decreased Activ Tolerance, Decreased UE Strength, Impaired I ADL's , Impaired Self-Care Skills Discharge Recommendations Plan/Recommendations: Continue POC Therapy D/C Recommendations: Home w/ Family Support, Occupational Therapy Home Care Equpiment Recommendations-D/C: Hip Kit Treatment Plan/Plan of Care Treatment,Training & Education: Yes Patient would benefit from OT for education, treatment and training to promote independence in ADL's, mobility, safety and/or upper extremity function for ADL' s. Plan of Care: ADL Retraining, Functional Mobility, UE Funct Exercise/Act Treatment Duration: Aug 07, 2018 Frequency: 5 times per week Estimated Hrs Per Day: .5 hour per day Agreement: Yes Rehab Potential: Good Time/GCodes Start Time: 11:35 Stop Time: 11:50 Total Time Billed (hr/min): 15 Billed Treatment Time 1, KIRSTEN VAN OT Jul 31, 2018 14:33
--- NOTE | 2018-07-31 14:34 | Consultation-Hospitalist ---
HPI History of Present Illness: HPI/Chief Complaint Pt is a 68yoCM with a PMH of HTN and osteoarthritis who is admitted following right TKA. I am consulted for medical management. He reports other than pain control he is doing well. 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 He is also having hiccups. He was seen by PT earlier today who recommended a muscle relaxer to help him participate in therapy so he is requesting that. He has used Flexeril in the past and done well with it. Source: patient Exam Limitations: no limitations Date Seen 07/31/18 Attending Physician Mc Byrd MD PCP Candy Mason MD Referring Physician Date of Admission Jul 30, 2018 at 07:36 Home Medications & Allergies Home Medications Reviewed patient Home Medication Reconciliation performed by pharmacy medication reconciliations gis mapping technician and/or nursing. Patients Allergies have been reviewed. Allergies Allergies Coded Allergies acetaminophen (Verified Allergy, Mild, ITCHING, 07/23/18) codeine (Verified Allergy, Mild, HIVES, 07/23/18) Past Poahmva-Eulhjo-Yqbpjh Hx Past Med/Social Hx: Reviewed Nursing Past Med/Soc Hx Patient Social History Marrital Status: Alcohol Use: Occasionally Uses Recreational Drug Use: No Physical Abuse Screen: No Sexual Abuse: No Recent Foreign Travel: No Contact w/other who traveled: No Recent Hopitalizations: No Recent Infectious Disease Expo: No Immunizations Up To Date Tetanus Booster (TDap): More than 5yrs Seasonal Allergies Seasonal Allergies: No Past Medical History Surgeries: Orthopedic Cardiac: Hypertension Sexually Transmitted Disease: No HIV/AIDS: No Genitourinary: Kidney Stones Gastrointestinal: Gastroesophageal Reflux Loss of Vision: Bilateral Hearing Impairment: Denies Cancer: Skin What Type of Treatment Did You: Surgical Intervention History of Blood Disorders: No Adverse Reaction to Blood Melendrez: No Family History Reviewed Nursing Family Hx No Pertinent Family Hx Review of Systems Constitutional: no symptoms reported EENTM: no symptoms reported Respiratory: no symptoms reported Cardiovascular: no symptoms reported Gastrointestinal: no symptoms reported, nausea Genitourinary: no symptoms reported Musculoskeletal: see HPI, joint pain Skin: no symptoms reported Psychiatric/Neurological: No Symptoms Reported Physical Exam Physical Exam Vital Signs Vital Signs - First Documented 07/30/18 07/30/18 07:38 11:18 Temp 97.9 Pulse 69 Resp 18 B/P (MAP) 133/72 Pulse Ox 97 O2 Delivery Room Air O2 Flow Rate 10 Capillary Refill : Height, Weight, BMI Height: 5'7.00" Weight: 216lbs. 5.0oz. 98.882107ea; 33.9 BMI Method:Stated General Appearance: No Apparent Distress, WD/WN Respiratory: Lungs Clear, No Accessory Muscle Use, No Respiratory Distress Cardiovascular: Regular Rate, Rhythm, No JVD, No Murmur Gastrointestinal: Normal Bowel Sounds, Non Tender, Soft Extremity: No Calf Tenderness, No Pedal Edema Neurologic/Psychiatric: Alert, Oriented x3, Normal Mood/Affect Results Results/Procedures Labs Laboratory Tests 07/31/18 06:00 Patient resulted labs reviewed. Assessment/Plan Assessment and Plan Assess & Plan/Chief Complaint Right TKA Diagnosis/Problems Diagnosis/Problems (1) Osteoarthritis of right knee Assessment & Plan: Management per primary Continue current pain regimen PT/OT ordered Qualifiers: Osteoarthritis type: primary Qualified Codes: M17.11 - Unilateral primary osteoarthritis, right knee (2) Essential (primary) hypertension Assessment & Plan: BP slightly elevated this AM, likely due to pain Continue lisinopril (3) Nausea Assessment & Plan: Zofran and phenergan ordered Consider Scopolamine patch if not improved with discontinuation of morphine Add PPI with history of GERD Clinical Quality Measures DVT/VTE Risk/Contraindication: Risk Factor Score Per Nursin RFS Level Per Nursing on Admit: 4+=Very High EFREN LOMBARDO MD Jul 31, 2018 14:34
[2018-07-31] MEDS ORDERED: PANTOPRAZOLE 20 MG TABLET (PROTONIX) PO NR (14:45)
--- NOTE | 2018-07-31 14:51 | Physical Therapy Daily Note ---
PT Daily Note-Current Subjective Patient is in 10/10 right knee pain. RN aware and will issue pain medication upon scheduled. Pain Numeric Pain Scale: 10-Worst Possible Pain Location: Right Location Body Site: Knee Pain Description: Acute Mental Status Patient Orientation: Normal For Age Attachments: IV Transfers Therapy Code Descriptions/Definitions Functional [place] Measure: 0=Not Assessed/NA 4=Minimal Assistance 1=Total Assistance 5=Supervision or Setup 2=Maximal Assistance 6=Modified [place] 3=Moderate Assistance 7=Complete [place] Therapy Quality Codes: 6 Independent with activity with or without an assistive device 5 Patient requires set up or clean up by helper. Patient completes activity by themselves 4 Supervision or touching assist (CGA). [place] provide cues , steadying assist 3 The helper provides less than half the effort to complete the activity 2 The helper provides more than half the effort to complete the activity 1 Dependent. The helper does all the effort to complete an activity 7 Patient refused to complete or attempt activity 9 The patient did not perform the activity before the current illness or injury 88 Not attempted due to Medical conditions or safety concerns Weight Bearing Right Lower Extremity: Right Weight Bearing/Tolerated Exercises Supine Ex: Ankle pumps, Quad Set, Heel Slides, Short Arc Quads, Straight leg raise, Hip abd/add Supine Reps: 15 (2 sets bilaterally) Assessment CPM 0-70 degrees with polar pack in place. Patient is limited by pain at this time. PT Short Term Goals Short Term Goals Time Frame: Aug 06, 2018 Transfers (B,C,W/C) (FIM): 5 Gait (FIM): 2 Gait Distance Comment: 50' Gait Level of Assist: 5 Gait Assistive Device: FWW PT Plan Treatment/Plan Treatment Plan: Continue Plan of Care Treatment Plan: Bed Mobility, Education, Functional Activity Nilsa, Functional Strength, Gait, Safety, Therapeutic Exercise, Transfers Treatment Duration: Aug 06, 2018 Frequency: 11 times per week Estimated Hrs Per Day: .25 hour per day (15-30') Patient and/or Family Agrees t: Yes Time/GCodes Time In: 1307 Time Out: 1333 Total Billed Treatment Time: 26 Total Billed Treatment 1 visit EX x 2 26 min HARPREET BOYD PT Jul 31, 2018 14:51
[2018-07-31] MEDS: CYCLOBENZAPRINE 10 MG (FLEXERIL) TAB PO PRN ×2 (14:55→20:08)
[2018-07-31 16:27] VITALS: BP 156/73
--- NOTE | 2018-07-31 16:37 | NUR ---
NOTE THAT PT VOICES PAIN AND DISCOMFORT WHEN UP AMB -- HE HAD STAFF REMOVE THE CPM -- IT WAS JUST CAUSING HIM TOO MUCH PAIN -- HE IS NOW REFUSING TO GET UP AT BEDSIDE TO USE THE URINAL -- DR LOMBARDO ADDED FLEXERIL AND PROTONIX THIS SHIFT
[2018-07-31 19:06] VITALS: BP 141/64
[2018-07-31] MEDS: IBUPROFEN TABLET 200 MG TAB PO PRN (20:07)
[2018-08-01] VITALS: BP 142/76
[2018-08-01] MEDS: IBUPROFEN TABLET 200 MG TAB PO PRN (03:55)
[2018-08-01] MEDS: NS IV 1000 ML 1,000 ML IV SCH (03:55)
[2018-08-01] MEDS: CYCLOBENZAPRINE 10 MG (FLEXERIL) TAB PO PRN (03:55)
[2018-08-01 04:00] VITALS: BP 147/80
--- NOTE | 2018-08-01 04:50 | DISCHARGE SUMMARY ---
DATE OF SERVICE: DIAGNOSES: 1. Right knee primary osteoarthritis. 2. History of kidney stones. 3. Hypertension. PROCEDURE: Right total knee arthroplasty. HISTORY: The patient is a 68-year-old gentleman who was admitted on the day of a right total knee arthroplasty, which he underwent without complications. Postoperatively, he did well. At the time of discharge, his wound was clean and dry and no calf tenderness. Negative Homans sign. He was tolerating his diet well and tolerating pain with oral pain medication. CONDITION ON DISCHARGE: Good. DISCHARGE DIET: Regular. FOLLOWUP: Followup is in three weeks. Home physical therapy has been arranged. DISCHARGE MEDICATIONS: Home medications, aspirin and Percocet as needed for pain. ACTIVITIES: Weightbearing as tolerated with assistive devices as needed. Job ID: [id number] DocumentID: [id number] Dictated Date: 07/31/2018 18:31:58 Station Installation Supervisor Date: 08/01/2018 04:49:54 Dictated By: TIMUR ANTHONY MD
[2018-08-01] MEDS: MULTIVIT W/MINERALS TAB (THERAGRAN M) PO SCH (06:21)
[2018-08-01 06:22] LABS: HEMOGLOBIN 13.8 G/DL (13.3-17.7)
--- NOTE | 2018-08-01 07:04 | Progress Note-Standard ---
Standard Progress Note Progress Notes/Assess & Plan Date Seen by a Provider: Aug 01, 2018 Time Seen by a Provider: 07:03 Progress/Assessment & Plan post op check somnolent, but no complaints denies paresthesias radiographs--HW well positioned without fx RLE--2 plus DP pulse with brisk cap refill. Intact PF of toes and ankle, but weak with DF. Sensation intact to light touch throughout s/p RTKA . weakness likely secondary to periarticular block mobilize as able Final Diagnosis no complaints Vital Signs Date Time Temp Pulse Resp B/P (MAP) Pulse Ox O2 Delivery O2 Flow Rate FiO2 08/01/18 04:25 98.8 08/01/18 04:00 99.5 86 18 147/80 (102) 97 Room Air 08/01/18 03:55 99.5 08/01/18 02:49 94 Room Air 08/01/18 00:00 98.5 82 20 142/76 (98) 95 Room Air 07/31/18 23:46 95 07/31/18 21:00 94 Room Air 07/31/18 20:30 98.9 07/31/18 20:07 100.4 07/31/18 20:00 99.7 07/31/18 19:06 101.8 93 19 141/64 (89) 93 Room Air 07/31/18 18:50 101.8 07/31/18 18:31 93 Room Air 07/31/18 18:16 100.1 07/31/18 16:27 101.3 89 20 156/73 (100) 93 Room Air 07/31/18 15:28 91 Room Air 07/31/18 12:00 100.3 77 20 183/92 (122) 98 Room Air 07/31/18 09:00 93 Nasal Cannula 3.00 07/31/18 08:00 99.7 88 18 174/80 (111) 96 Room Air I & O 08/01/18 07:00 Intake Total 4460 ml Output Total 3125 ml Balance 1335 ml Laboratory Tests Test 08/01/18 06:00 Range/Units Hemoglobin 13.8 13.3-17.7 G/DL Hematocrit 42 40-54 % RLE--incision clean and dry. No calf tenderness. Neg SLR s/p RTKA PT then DC home TIMUR ANTHONY MD Aug 01, 2018 07:04
--- NOTE | 2018-08-01 07:04 | NUR ---
MORPHINE CADD STEEL DETAILER PUMP D/C'D BY DR. ANTHONY. REMAINDER OF MORPHINE WHICH WAS 76ML OR 76MG WASTED. WITNESSED BY EMILEE JONES. DR. ANTHONY ALSO STATED THAT IV COULD BE LEFT OUT.
[2018-08-01] MEDS ORDERED: morphine INJ 4 MG/ML 1 ML (VIAL/SYRINGE) IVP PRN (07:15)
[2018-08-01] MEDS: ASPIRIN E.C. 81 MG (ECOTRIN) TAB PO SCH (07:50)
[2018-08-01] MEDS: ENOXAPARIN 30 MG/0.3 ML (LOVENOX) SYR SC SCH (07:50)
[2018-08-01] MEDS: SENNA W/DOCUSATE (SENOKOT S) TABLET PO SCH (07:51)
[2018-08-01] MEDS: lisINopril 10 MG (PRINIVIL) TABLET PO SCH (07:52)
[2018-08-01 08:00] VITALS: BP 181/75
[2018-08-01] MEDS ORDERED: PANTOPRAZOLE 20 MG TABLET (PROTONIX) PO SCH (09:00)
--- NOTE | 2018-08-01 09:26 | NUR ---
CM/SS, respond to referral. Visited with patient and coordinated post hospital services with patient preferred agencies, [facility]: HHC: Completed referral with [facility] for PT per physician order. DME: Completed referral with [facility] HME for FWW, spouse will apple picker. Patient resides with his spouse at home and indicates she will be his primary support. Patient identifies no needs other that arrangements above. Unit RN updated.
--- NOTE | 2018-08-01 10:12 | Physical Therapy Daily Note ---
PT Daily Note-Current Subjective Patient agrees to PT. He reports he is ready to go home. Pain Numeric Pain Scale: 5-Moderate Pain Location: Right Location Body Site: Knee Pain Description: Acute Mental Status Patient Orientation: Normal For Age Transfers Therapy Code Descriptions/Definitions Functional [place] Measure: 0=Not Assessed/NA 4=Minimal Assistance 1=Total Assistance 5=Supervision or Setup 2=Maximal Assistance 6=Modified [place] 3=Moderate Assistance 7=Complete [place] Therapy Quality Codes: 6 Independent with activity with or without an assistive device 5 Patient requires set up or clean up by helper. Patient completes activity by themselves 4 Supervision or touching assist (CGA). [place] provide cues , steadying assist 3 The helper provides less than half the effort to complete the activity 2 The helper provides more than half the effort to complete the activity 1 Dependent. The helper does all the effort to complete an activity 7 Patient refused to complete or attempt activity 9 The patient did not perform the activity before the current illness or injury 88 Not attempted due to Medical conditions or safety concerns Transfers (B, C, W/C) (FIM): 6 Scootin Supine to/from Sit: 6 Sit to/from Stand: 6 Weight Bearing Right Lower Extremity: Right Weight Bearing/Tolerated Gait Training Gait (FIM): 6 Distance (FIM): 3=150 ft Distance: 200'x 2 Gait Level of Assist: 6 Gait Assistive Device: FWW slow, antalgic Stair Training Stair Training: Handrails/: 1 handrail, uses walker Stairs (FIM): 3 #of Steps: 4 Stairs: Pattern: Step to Exercises Supine Ex: Ankle pumps, Quad Set, Heel Slides Supine Reps: 15 Seated Therapy Exercises: Long arc quads Seated Reps: 15 Assessment Patient much improved on this date and performed steps without difficulty. PT to dismiss patient from services at this time. PT Short Term Goals Short Term Goals Time Frame: Aug 06, 2018 Transfers (B,C,W/C) (FIM): 5 Gait (FIM): 2 Gait Distance Comment: 50' Gait Level of Assist: 5 Gait Assistive Device: FWW PT Plan Treatment/Plan Treatment Plan: Discontinue PT, goals met Treatment Plan: Bed Mobility, Education, Functional Activity Nilsa, Functional Strength, Gait, Safety, Therapeutic Exercise, Transfers Treatment Duration: Aug 06, 2018 Frequency: 11 times per week Estimated Hrs Per Day: .25 hour per day (15-30') Patient and/or Family Agrees t: Yes Time/GCodes Time In: 815 Time Out: 840 Total Billed Treatment Time: 25 Total Billed Treatment 1 visit EX 15 min GT 10 min HARPREET BOYD PT Aug 01, 2018 10:12
[2018-08-01] MEDS ORDERED: Oxycodone Hcl PO (10:18)
[2018-08-01 10:30] VITALS: BP 181/75
== END 2018-08-01 10:30 | disposition home health service (06) | DRG 470 ==
LOC: 4TH 07:36 → SURG 07:37 → 4TH 12:15
PROVIDERS: ADMIT Orthopaedic Surgery; ATTEND Orthopaedic Surgery
PROC: 0SRC0J9 Replacement of Right Knee Joint with Synthetic Substitute, Cemented, Open Approach (ICD-10-PCS; principal; 2018-07-30 09:36)
DX: M17.11 Unilateral primary osteoarthritis, right knee (principal); I10 Essential (primary) hypertension; K21.9 Gastro-esophageal reflux disease without esophagitis; R06.6 Hiccough; R11.0 Nausea; T40.2X5A Adverse effect of other opioids, initial encounter; Z87.891 Personal history of nicotine dependence; Z87.442 Personal history of urinary calculi; Z85.828 Personal history of other malignant neoplasm of skin
CPT/HCPCS: 36415; 73560; 85014; 85018; 86850; 86900; 86901; 94664; 94760

== ENCOUNTER 2018-09-19 12:43 | Outpatient (RCR) | payer MEDICARE ==
[~2018-09-19 12:43] MED LIST changes: +NAPR-1033 PO; +OXYC1TAB87 PO; +Oxycodone Hcl PO; +RANI75TA21 PO
== END 2018-09-19 16:00 | disposition home or self-care (01) ==
PROVIDERS: ATTEND Orthopaedic Surgery
DX: Z47.1 Aftercare following joint replacement surgery (principal); Z96.651 Presence of right artificial knee joint

== ENCOUNTER 2019-05-19 05:32 | Outpatient (CLI) | payer MEDICARE ==
[~2019-05-19] VITALS: Ht 167 cm; Wt 90.9 kg
[~2019-05-19 05:32] MED LIST changes: +RANI-324 PO; -RANI75TA21 PO
== END 2019-05-19 15:24 | disposition home or self-care (01) ==
LOC: PREOP 05:32
PROVIDERS: ATTEND Specialist
DX: Z01.818 Encounter for other preprocedural examination (principal)

== ENCOUNTER 2019-05-22 06:24 | Day surgery (SDC) | payer MEDICARE ==
[~2019-05-22] VITALS: Ht 167 cm; Wt 90.9 kg
[2019-05-22] MEDS ORDERED: TIMOLOL MALEATE 0.5% 5 ML (TIMOPTIC) BTL OU PRN (06:45)
[2019-05-22] MEDS ORDERED: POVIDONE (BETADINE) OPHTH SOLN 5% 30 ML OP ONE (06:45)
[2019-05-22] MEDS ORDERED: MOXIFLOXACIN OPHTH SOLN 5 MG/ML 0.3 ML SYRINGE OP ONE (06:45)
[2019-05-22] MEDS ORDERED: LIDOCAINE PF 1% 2 ML VIAL IR PRN (06:45)
[2019-05-22] MEDS: TETRACAINE 0.5% OPHTH SOLN 4 ML BTL (SINGLE DOSE ONLY) OU PRN ×4 (06:50→07:12)
[2019-05-22 06:56] VITALS: BP 96/60
[2019-05-22] MEDS: PHENYLEPHRINE 10% OPHTH (NEO-SYN) 5 ML BTL OU SCH ×3 (07:02→07:12)
[2019-05-22] MEDS: CYCLOPENTOLATE 1% (CYCLOGYL) 2 ML DROPS OP SCH ×3 (07:02→07:12)
[2019-05-22] MEDS ORDERED: acetaZOLAMIDE ER 500 MG CAP (DIAMOX SEQUELS) PO ONE (08:00)
[2019-05-22] MEDS ORDERED: MIDAZOLAM 2 MG/2 ML (VERSED) VIAL ONE (08:09)
--- NOTE | 2019-05-22 08:16 | Ophthalmologist Pre-Op Note ---
Pre-Operative Progress Note H&P Reviewed The H&P was reviewed, patient examined and no changes noted. Date H&P Reviewed: May 22, 2019 Time H&P Reviewed: 08:15 Pre-Op Dx Cataract, Left Eye ALVARO ABERNATHY MD May 22, 2019 08:16
--- NOTE | 2019-05-22 08:38 | Ophthalmology Operative Report ---
Cataract removal/placement IOL PREOPERATIVE DIAGNOSIS: Cataract Left Eye POSTOPERATIVE DIAGNOSIS: Cataract Left Eye PROCEDURE: Cataract removal and placement of posterior chamber implant, left eye SURGEON: Carmelo Abernathy ANESTHESIA: Topical with sedation COMPLICATIONS: None ESTIMATED BLOOD LOSS: Minimal DESCRIPTION OF PROCEDURE: After proper informed consent was obtained, the patient, a 69 male, was taken to the Operating Room and the left eye was anesthetized with tetracaine. The left eye was then prepped and draped in the usual manner. A wire lid speculum was placed. A paracentesis was made at the left hand position. Preservative free lidocaine was injected into the anterior chamber followed by viscoelastic. A clear corneal incision was made in the temporal position. A capsulorrhexis was preformed and the central nuclear and cortical material were removed. The posterior capsule was polished and an Tre 17.5 AU00T0 was placed into the capsular bag. The residual viscoelastic was aspirated and balanced saline solution was injected into the anterior chamber. Moxifloxacin was injected into the anterior chamber. The wound was checked and found to be water tight. The patient tolerated the procedure well without complications. CARMELO ABERNATHY MD May 22, 2019 08:38
[2019-05-22 08:45] VITALS: BP 127/72
--- NOTE | 2019-05-22 15:08 | Anesthesia-General Post-Op ---
MAC Patient Condition Mental Status/LOC: Same as Preop Cardiovascular: Satisfactory Nausea/Vomiting: Absent Respiratory: Satisfactory Pain: Controlled Complications: Absent Post Op Complications Complications None Follow Up Care/Instructions Patient Instructions None needed. Anesthesiology Discharge Order Discharge Order Patient is doing well, no complaints, stable vital signs, no apparent adverse anesthesia problems. No complications reported per nursing. MAYA OJEDA CRNA May 22, 2019 15:08
== END 2019-05-22 08:45 | disposition home or self-care (01) ==
LOC: SDC 06:24
PROVIDERS: ATTEND Specialist
DX: H25.12 Age-related nuclear cataract, left eye (principal); I10 Essential (primary) hypertension; Z87.891 Personal history of nicotine dependence; Z88.5 Allergy status to narcotic agent; Z90.89 Acquired absence of other organs; Z79.899 Other long term (current) drug therapy; Z85.828 Personal history of other malignant neoplasm of skin; Z88.8 Allergy status to other drugs, medicaments and biological substances; Z83.3 Family history of diabetes mellitus; Z80.9 Family history of malignant neoplasm, unspecified

== ENCOUNTER 2019-05-29 06:40 | Day surgery (SDC) | payer MEDICARE ==
--- NOTE | 2019-05-22 15:07 | Anesthesia-General Post-Op ---
MAC Patient Condition Mental Status/LOC: Same as Preop Cardiovascular: Satisfactory Nausea/Vomiting: Absent Respiratory: Satisfactory Pain: Controlled Complications: Absent Post Op Complications Complications None Follow Up Care/Instructions Patient Instructions None needed. Anesthesiology Discharge Order Discharge Order Patient is doing well, no complaints, stable vital signs, no apparent adverse anesthesia problems. No complications reported per nursing. MAYA OJEDA CRNA May 22, 2019 15:07
[~2019-05-29] VITALS: Ht 168 cm; Wt 90.9 kg
[2019-05-29] MEDS ORDERED: POVIDONE (BETADINE) OPHTH SOLN 5% 30 ML OP ONE (07:00)
[2019-05-29] MEDS ORDERED: MOXIFLOXACIN OPHTH SOLN 5 MG/ML 0.3 ML SYRINGE OP ONE (07:00)
[2019-05-29] MEDS ORDERED: TIMOLOL MALEATE 0.5% 5 ML (TIMOPTIC) BTL OU PRN (07:00)
[2019-05-29] MEDS ORDERED: LIDOCAINE PF 1% 2 ML VIAL IR PRN (07:00)
[2019-05-29] MEDS: TETRACAINE 0.5% OPHTH SOLN 4 ML BTL (SINGLE DOSE ONLY) OU PRN ×4 (07:03→07:32)
[2019-05-29 07:10] VITALS: BP 116/74
[2019-05-29] MEDS: PHENYLEPHRINE 10% OPHTH (NEO-SYN) 5 ML BTL OU SCH ×3 (07:17→07:32)
[2019-05-29] MEDS: CYCLOPENTOLATE 1% (CYCLOGYL) 2 ML DROPS OP SCH ×3 (07:17→07:32)
[2019-05-29] MEDS ORDERED: MIDAZOLAM 2 MG/2 ML (VERSED) VIAL ONE (07:48)
--- NOTE | 2019-05-29 08:10 | Ophthalmologist Pre-Op Note ---
Pre-Operative Progress Note H&P Reviewed The H&P was reviewed, patient examined and no changes noted. Date H&P Reviewed: May 29, 2019 Time H&P Reviewed: 08:10 Pre-Op Dx Cataract, Right Eye ALVARO ABERNATHY MD May 29, 2019 08:10
[2019-05-29] MEDS ORDERED: acetaZOLAMIDE ER 500 MG CAP (DIAMOX SEQUELS) PO ONE (08:30)
--- NOTE | 2019-05-29 08:32 | Ophthalmology Operative Report ---
Cataract removal/placement IOL PREOPERATIVE DIAGNOSIS: Cataract Right Eye POSTOPERATIVE DIAGNOSIS: Cataract Right Eye PROCEDURE: Cataract removal and placement of posterior chamber implant, right eye SURGEON: Carmelo Abernathy ANESTHESIA: Topical with sedation COMPLICATIONS: None ESTIMATED BLOOD LOSS: Minimal DESCRIPTION OF PROCEDURE: After proper informed consent was obtained, the patient, a 69 male, was taken to the Operating Room and the right eye was anesthetized with tetracaine. The right eye was then prepped and draped in the usual manner. A wire lid speculum was placed. A paracentesis was made at the left hand position. Preservative free lidocaine was injected into the anterior chamber followed by viscoelastic. A clear corneal incision was made in the temporal position. A capsulorrhexis was preformed and the central nuclear and cortical material were removed. The posterior capsule was polished and Tre 17.0 AU00T0 IOL was placed into the capsular bag. The residual viscoelastic was aspirated and balanced saline solution was injected into the anterior chamber. Moxifloxacin was injected into the anterior chamber. The wound was checked and found to be water tight. The patient tolerated the procedure well without complications. CARMELO ABERNATHY MD May 29, 2019 08:32
[2019-05-29 08:37] VITALS: BP 121/79
--- NOTE | 2019-05-29 14:13 | Anesthesia-General Post-Op ---
MAC Patient Condition Mental Status/LOC: Same as Preop Cardiovascular: Satisfactory Nausea/Vomiting: Absent Respiratory: Satisfactory Pain: Controlled Complications: Absent Post Op Complications Complications None Follow Up Care/Instructions Patient Instructions None needed. Anesthesiology Discharge Order Discharge Order Patient is doing well, no complaints, stable vital signs, no apparent adverse anesthesia problems. No complications reported per nursing. FRANCISCA LENZ CRNA May 29, 2019 14:13
== END 2019-05-29 08:37 | disposition home or self-care (01) ==
LOC: SDC 06:40
PROVIDERS: ATTEND Specialist
DX: H25.11 Age-related nuclear cataract, right eye (principal); I10 Essential (primary) hypertension; Z87.891 Personal history of nicotine dependence; Z88.5 Allergy status to narcotic agent; Z90.89 Acquired absence of other organs; Z79.899 Other long term (current) drug therapy; Z88.6 Allergy status to analgesic agent; Z80.9 Family history of malignant neoplasm, unspecified